=== PATIENT | female | born 1960 | race Caucasian/White ===

== ENCOUNTER 2022-11-20 13:49 | Emergency (ER) | payer OTHER ==
[2022-11-20 14:04] VITALS: BP 151/84
--- NOTE | 2022-11-20 14:32 | ED Physician Documentation ---
History of Present Illness - Stated complaint Stated Complaint: RT ARM LAC - Chief complaint Chief Complaint: Laceration - Additonal information Additional information: 62-year-old female presents emergency department for evaluation of acute right forearm injury sustained when washing a paring knife that slipped out of her hand and stabbed her right forearm. It is about 3 inches proximal to the wrist. It did bleed heavily at the scene but on evaluation here in the ER no further bleeding is noted. No evidence of tendon or vascular injury. She is right-hand dominant. Reports tetanus is up-to-date. Review of Systems Skin: reports: Laceration (s) PD PAST MEDICAL HISTORY - Present Medications Home Medications: Ambulatory Orders Medication Instructions Recorded Confirmed Lisinopril [Zestril] 10 mg PO 11/20/22 Venlafaxine [Effexor] 37.5 mg PO BID 11/20/22 11/20/22 hydroCHLOROthiazide [Hydrodiuril] 12.5 mg PO DAILY 11/20/22 11/20/22 - Allergies Allergies/Adverse Reactions: Allergies Allergy/AdvReac Type Severity Reaction Status Date / Time No Known Drug Allergies Allergy Verified 11/20/22 14:03 PD ED PE EXPANDED - Extremities Extremities: Right forearm (1 cm curved laceration proximal right forearm volar side. Normal flexion extension of hand and digits at wrist. Neurovascular intact. 2+ radial and 1+ ulnar pulse. Small amount of surrounding hematoma noted) Results - Vitals Vitals: Vital Signs - 24 hr 11/20/22 14:00 Temperature 36 C L Heart Rate 73 Respiratory 16 Rate Blood Pressure 151/84 H O2 Saturation 99 Oxygen O2 Source Room air Procedures - Laceration (location) Right forearm Length in cm: 1 Wound type: Curved, Into muscle Neurovascular status: Sensory intact, Motor intact, Vascular intact Tendon involvement: Tendon intact Anesthesia: Lidocaine 1% with epi Wound preparation: Chlorhexadine, Irrigated copiously NS Skin layer closure: Interrupted, Size #-0 - enter number (4), Sutures - enter # (2) Other: Patient tolerated well, No complications, Neurovascular intact, Dressing applied, Tetanus UTD PD Medical Decision Making - ED course Complexity details: d/w patient ED course: 60-year-old female presents emergency department for evaluation of acute right forearm laceration sustained when a paring knife slipped out of her hand and stabbed the forearm. On exam there is no evidence of tendon or vascular injury. Her tetanus is up-to-date. The wound was easily closed with 2 interrupted 4-0 nylon sutures. Routine wound care and emergent return precautions were discussed Departure - Departure Disposition: 01 Home, Self Care Clinical Impression: Forearm laceration Qualifiers: Encounter type: initial encounter Laterality: right Qualified Code(s): S51.811A - Laceration without foreign body of right forearm, initial encounter Condition: Serious Record reviewed to determine appropriate education?: Yes Comments: Shannon bradford did sustain a superficial laceration to your right forearm that appears to have spared any injury to the tendon or blood vessels. We did place 2 superficial sutures. These should be removed in about 7 to 10 days time. In general you can wash this every day with warm soap and water, pat dry and apply any simple antibiotic ointment such as bacitracin or triple antibiotic. Your tetanus is up-to-date. Return to the ER or any urgent care provider for concerns of infection.
== END 2022-11-20 14:35 | disposition home or self-care (01) ==
LOC: ED 13:49
DX: S51.811A Laceration without foreign body of right forearm, initial encounter (principal); W26.0XXA Contact with knife, initial encounter
CPT/HCPCS: 12001; 99281